=== PATIENT | male | born 1995 | race Caucasian/White ===

== ENCOUNTER 2023-01-27 10:39 | Emergency (ER) | payer OTHER, SELFPAY ==
[2023-01-27 10:43] VITALS: BP 127/69; PULSE 74; RESP 18; TEMP 36.6; O2SAT 98; BMI 20.4
--- NOTE | 2023-01-27 11:12 | ED.GENADUL1 ---
HPI - General Adult General Chief complaint: Nausea/Vomiting/Diarrhea Stated complaint: VOMITING AND SOME FEVER Time Seen by Provider: 01/27/23 10:45 Source: patient Mode of arrival: walk-in Limitations: no limitations History of Present Illness HPI narrative: Patient presented to us with 1 episode of vomiting that happened yesterday he did not have any symptoms after that but this morning he woke up exhausted he also ate some [employer] in the morning and smoked 1 cigarette and after that he had some nausea the patient also have some frontal headache No exposure to anybody with similar symptoms no abdominal pain or diarrhea Related Data Home Medications Medication Instructions Recorded Confirmed buprenorphine 8 mg-naloxone 2 mg 4 tab sublingual DAILY 01/27/23 01/27/23 sublingual tablet clonidine HCl 0.1 mg tablet 0.1 mg PO DAILY PRN hypertensive 01/27/23 01/27/23 emergency dicyclomine 20 mg tablet mg 01/27/23 gabapentin 800 mg tablet 800 mg PO BID 01/27/23 01/27/23 lacosamide 50 mg tablet mg PO BID 01/27/23 Allergies Allergy/AdvReac Type Severity Reaction Status Date / Time Penicillins Allergy Severe Swelling Verified 01/27/23 10:51 of Lip/Tongue/Throat Review of Systems ROS Status of ROS 10 or more systems reviewed and unremarkable except as noted in history and below Exam Narrative Exam Narrative: Nurses notes and vital signs reviewed and patient is not hypoxic. General: Well-appearing and in no apparent distress. Skin: Warm, dry, no pallor noted. No rash. Head: Normocephalic, atraumatic. Neck: Supple, non-tender. Eye: Pupils are equal, round and EOMI. No scleral icterus. Ears, Nose, Mouth, and Throat: TM are clear, no nasal mucosal hypertrophy. Oral mucosa is moist, no posterior oropharynx erythema, uvula is mid-line Cardiovascular: Regular Rate and Rhythm without murmur, gallop or rub. Respiratory: No accessory muscle use or respiratory distress. Lungs are clear to auscultation, no wheezing, rales or rhonchi Chest Wall: no tenderness Back: No midline thoracic or lumbar vertebral tenderness. No CVA tenderness Musculoskeletal: normal ROM, no calf or popliteal tenderness, no lower extremity edema/swelling GI: Abdomen is soft, non-distended. Normal bowel sounds. No masses appreciated. No tenderness to palpation. No rebound, guarding, or rigidity noted. Neurological: A&O x4. No cranial nerve dysfunction observed. No truncal ataxia. Moves all extremities. Sensation intact. Psychiatric: Cooperative and interactive. Normal mood and affect. Constitutional Vital Signs, click to edit/add: Last Vital Signs Temp 97.9 F 01/27/23 10:43 Pulse 74 01/27/23 10:43 Resp 18 01/27/23 10:43 BP 127/69 01/27/23 10:43 Pulse Ox 98 01/27/23 10:43 O2 Del Method Room Air 01/27/23 10:43 Course Vital Signs Vital signs: Vital Signs Temperature 97.9 F 01/27/23 10:43 Pulse Rate 74 01/27/23 10:43 Respiratory Rate 18 01/27/23 10:43 Blood Pressure 127/69 01/27/23 10:43 Pulse Oximetry 98 01/27/23 10:43 Oxygen Delivery Method Room Air 01/27/23 10:43 Temperature 97.9 F 01/27/23 10:43 Pulse Rate 74 01/27/23 10:43 Respiratory Rate 18 01/27/23 10:43 Blood Pressure 127/69 01/27/23 10:43 Pulse Oximetry 98 01/27/23 10:43 Oxygen Delivery Method Room Air 01/27/23 10:43 Medical Decision Making [facility] Narrative Medical decision making narrative: Presenting possibly with mild gastroenteritis right now the patient presenting to the ER mostly for work excuse The patient is to follow up with primary care physician in next 2-3 days or to return to the emergency department should any of the signs or symptoms worsen or new symptoms develop. The patient agrees with the following Diagnosis and Treatment plan and the patient will be discharged home. Discharge Plan Discharge Chief Complaint: Nausea/Vomiting/Diarrhea Clinical Impression: Gastroenteritis Patient Disposition: Home, Self-Care Time of Disposition Decision: 11:09 Condition: Good Prescriptions / Home Meds: No Action buprenorphine-naloxone 8-2 mg tablet, sublingual 4 tab SUBLINGUAL DAILY Rx Instructions: 2 tabs daily clonidine HCl 0.1 mg tablet 0.1 mg PO DAILY PRN (Reason: hypertensive emergency) gabapentin 800 mg tablet 800 mg PO BID dicyclomine 20 mg tablet lacosamide 50 mg tablet PO BID Instructions: Gastroenteritis (ED) Stand Alone Forms: Portal Instructions Referrals: Physician,Non-Staff, MD [Primary Care Provider] - 1 week
[2023-01-27] MEDS: ONDANSETRON 4 MG RAPDIS TABLET SL (11:15)
== END 2023-01-27 11:17 | disposition home or self-care (01) ==
PROVIDERS: Emergency Provider Emergency Medicine
DX: K52.9 Noninfective gastroenteritis and colitis, unspecified (principal); F17.210 Nicotine dependence, cigarettes, uncomplicated; Z79.899 Other long term (current) drug therapy
CPT/HCPCS: 99283